=== PATIENT | female | born 1965 | race Caucasian/White ===

== ENCOUNTER 2020-12-17 05:22 | Emergency (ER) | payer BC, OTHER ==
[2020-12-17] MEDS ORDERED: AMOXicillin 250 MG CAP ONE (05:56)
[2020-12-17] MEDS ORDERED: Bacitracin 1 PK ONE (05:59)
== END 2020-12-17 06:30 | disposition home or self-care (01) ==
LOC: BURERS 05:22
DX: S61.257A Open bite of left little finger without damage to nail, initial encounter (principal); E03.9 Hypothyroidism, unspecified; Z79.899 Other long term (current) drug therapy; W54.0XXA Bitten by dog, initial encounter
CPT/HCPCS: 99283